=== PATIENT | male | born 1985 | race Caucasian/White ===

== ENCOUNTER 2020-04-22 15:07 | Emergency (ER) | payer MEDICAID ==
--- NOTE | 2020-04-22 15:35 | ER Document Report ---
ED Medical Screen (RME) - General Chief Complaint: Chest Pain Stated Complaint: CHEST PAIN/UPPER SHOULDER PAIN Time Seen by Provider: 04/22/20 15:24 Notes: HPI: 34-year-old male otherwise healthy presenting with 3 to 4 months of shortness of breath and feeling like he cannot take a deep breath in. States over the last 2 to 3 weeks he has had an increase in left chest discomfort with deep breathing where when he takes a deep breath in he feels a sharp pain radiating from the front left chest into the left back. Denies recent travel or prolonged immobilization patient does not believe it is Covid related he has not had a fever. PHYSICAL EXAMINATION: Lungs are clear to auscultation. Regular rate and rhythm. Discussed with Dr. Krishnan regarding D Dimer I have greeted and performed a rapid initial assessment of this patient. A comprehensive ED assessment and evaluation of the patient, analysis of test results and completion of medical decision making process will be conducted by an additional ED providers. Please note that clinical decision making for this patient was made during the 2019 pandemic of novel coronavirus which caused a significant strain on the healthcare system including at this particular facility. Criteria for admission discharge and level of care decisions as well as treatment decisions have necessarily changed - Related Data Allergies/Adverse Reactions: No Known Allergies Allergy (Unverified 04/22/20 15:24) Home Medications: multivitamins Past Medical History - Social History Chew tobacco use (# tins/day): No Frequency of alcohol use: None Drug Abuse: None Physical Exam - Vital signs Vitals: Temp Pulse Resp BP Pulse Ox 98.5 F 78 20 131/84 H 100 04/22/20 15:25 04/22/20 15:25 04/22/20 15:25 04/22/20 15:25 04/22/20 15:25 Course - Vital Signs Vital signs: Temp Pulse Resp BP Pulse Ox 98.5 F 78 20 131/84 H 100 04/22/20 15:25 04/22/20 15:25 04/22/20 15:25 04/22/20 15:25 04/22/20 15:25
--- NOTE | 2020-04-22 16:11 | RADIOLOGY REPORT (SQ) ---
EXAM DESCRIPTION: CHEST 2 VIEWS IMAGES COMPLETED DATE/TIME: 04/22/2020 3:43 pm REASON FOR STUDY: pleuritic pain COMPARISON: None. EXAM PARAMETERS: NUMBER OF VIEWS: two views TECHNIQUE: Digital Frontal and Lateral radiographic views of the chest acquired. RADIATION DOSE: NA LIMITATIONS: none FINDINGS: LUNGS AND PLEURA: No opacities, masses or pneumothorax. No pleural effusion. MEDIASTINUM AND HILAR STRUCTURES: No masses or contour abnormalities. HEART AND VASCULAR STRUCTURES: Heart normal size. No evidence for failure. BONES: No acute findings. HARDWARE: None in the chest. OTHER: No other significant finding. IMPRESSION: NO ACUTE RADIOGRAPHIC FINDING IN THE CHEST. TECHNICAL DOCUMENTATION: JOB ID: [id number] [employer]- All Rights Reserved Reading location - IP/workstation name: [email or web address]
[2020-04-22 16:38] LABS: ABSOLUTE BASOPHILS # (AUTO) 0.1 10^3/uL (0.0-0.2); ABSOLUTE EOSINOPHILS # (AUTO) 0.3 10^3/uL (0.0-0.6); ABSOLUTE LYMPHOCYTES (AUTO) 2.3 10^3/uL (0.5-4.7); ABSOLUTE MONOCYTES (AUTO) 0.6 10^3/uL (0.1-1.4); ABSOLUTE NEUT (AUTO) 4.3 10^3/uL (1.7-8.2); EOSINOPHILS % (AUTO) 3.9 % (0-6); HEMATOCRIT 43.8 % (37.9-51.0); HEMOGLOBIN 15.3 g/dL (13.5-17.0); MEAN CORPUSCULAR HEMOGLOBIN 31.7 pg (27.0-33.4); MEAN CORPUSCULAR HGB CONC 34.9 g/dL (32.0-36.0); MEAN CORPUSCULAR VOLUME 91 fl (80-97); MONOCYTES % (AUTO) 8.2 % (3-13); PLATELET COUNT 245 10^3/uL (150-450); RED BLOOD COUNT 4.83 10^6/uL (4.35-5.55); RED CELL DISTRIBUTION WIDTH 12.3 % (11.5-14.0); SEGMENTED NEUTROPHILS % (AUTO) 56.9 % (42-78); TOTAL CELLS COUNTED % (AUTO) 100 %; WHITE BLOOD COUNT 7.5 10^3/uL (4.0-10.5)
[2020-04-22 16:45] LABS: INTERNATIONAL RATION (INR) 1.08; PROTHROMBIN TIME 14.2 SEC (11.4-15.4)
[2020-04-22 17:00] LABS: ALBUMIN 4.6 g/dL (3.5-5.0); ALKALINE PHOSPHATASE 85 U/L (38-126); ANION GAP 9 (5-19); ASPARTATE AMINO TRANSFERASE 36 U/L (17-59); BILIRUBIN,DIRECT 0.2 mg/dL (0.0-0.4); BILIRUBIN,TOTAL 0.5 mg/dL (0.2-1.3); BLOOD UREA NITROGEN 14 mg/dL (7-20); CALCIUM 10.3 mg/dL (8.4-10.2); CARBON DIOXIDE 28 mmol/L (22-30); CHLORIDE 101 mmol/L (98-107); GLUCOSE 99 mg/dL (75-110); POTASSIUM 4.2 mmol/L (3.6-5.0)
[2020-04-22 17:08] LABS: D-DIMER < 0.27 ug/mL (0.00-0.50)
--- NOTE | 2020-04-22 18:40 | ER Document Report ---
ED General - General Chief Complaint: Chest Pain Stated Complaint: CHEST PAIN/UPPER SHOULDER PAIN Time Seen by Provider: 04/22/20 15:24 Primary Care Provider: [facility] [Provider Group] - Follow up as needed TIMMY DREW DO [NO LOCAL MD] - Follow up as needed - [facility] Notes: 34-year-old male presents with intermittent episodes of shortness of breath ongoing for the past 4 months. Patient states that earlier this year he fell from 30 feet and had a left calcaneal fracture. He underwent surgery and is now back up and walking unassisted. He states that he was essentially immobile for 6 months. During this time he states he pretty much just ate and played video games all day. He ended up gaining a lot of weight. He has started now to increase his activity, though notes that he is hesitant to still do a lot of workouts that involve the lower body. He states he is lost about 20 pounds and has changed his diet. Patient states that he will have intermittent episodes where he feels like his breath is taken away, like he cannot take a deep breath, like he is only taking 60% of a normal breath. This happens for 1 breath and then returns to normal. He states that this causes him to feel anxious and stressed. He states that he will intermittently have a sharp upper chest pain with the brief episodes of shortness of breath. He currently denies pain right now. He also states he is having upper back pain which she attributes to holding his son. He states he has had 2 negative Covid tests. He states that he is otherwise healthy, he has no diagnosed medical conditions, he does not smoke or drink. He also states that potentially all of his symptoms have been worsened by the fact that he has been essentially unemployed for 2 years. 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 - Related Data Allergies/Adverse Reactions: No Known Allergies Allergy (Unverified 04/22/20 15:24) Home Medications: multivitamins Past Medical History - General Information source: Patient - Social History Smoking Status: Former Smoker Chew tobacco use (# tins/day): No Frequency of alcohol use: None Drug Abuse: None Family History: Reviewed & Not Pertinent Patient has homicidal ideation: No Past Surgical History: Reports: Hx Orthopedic Surgery - left foot Review of Systems - Review of Systems Constitutional: denies: Fever EENT: No symptoms reported Cardiovascular: denies: Chest pain Respiratory: See HPI Gastrointestinal: denies: Abdominal pain Genitourinary: No symptoms reported Male Genitourinary: No symptoms reported Musculoskeletal: No symptoms reported Skin: No symptoms reported Hematologic/Lymphatic: No symptoms reported Neurological/Psychological: Depression. denies: Suicidal ideation Physical Exam - Vital signs Vitals: Temp Pulse Resp BP Pulse Ox 98.5 F 78 20 131/84 H 100 04/22/20 15:25 04/22/20 15:25 04/22/20 15:25 04/22/20 15:25 04/22/20 15:25 - General General appearance: Appears well, Alert In distress: None - HEENT Head: Normocephalic, Atraumatic Extraocular movements intact: Yes Pupils: PERRL Neck: Supple - Respiratory Respiratory status: No: Labored, Tachypnea Chest status: Nontender Breath sounds: Normal - Cardiovascular Rhythm: Regular Heart sounds: Normal auscultation Murmur: No - Abdominal Tenderness: Nontender - Extremities General upper extremity: Normal ROM General lower extremity: Normal ROM. No: Edema - Neurological Neuro grossly intact: Yes Cognition: Normal Orientation: AAOx4 - Psychological Associated symptoms: Normal affect - Skin Skin Temperature: Warm Course - Re-evaluation Re-evalutation: 34-year-old male with intermittent episodes of shortness of breath, more so breathless numbness, ongoing for the past 4 months. Patient relates that he had a prolonged hospitalization after a calcaneal fracture and a prolonged period of immobility, he is now ambulatory and trying to get back into activity. On exam he is hemodynamically stable, lungs are clear, heart RRR, no peripheral edema. Labs done through the triage process, reviewed. No leukocytosis or left shift. No acute anemia. Electrolytes within normal limits, creatinine within normal limits. Troponin and D-dimer negative. EKG is nonischemic. Chest x-ray is without consolidation. All these results were discussed with patient. At this time I do not believe that an acute cardiopulmonary process is taking place. He did not report any chest trauma which would put him at risk for pulmonary disease. Reportedly has had 2 neg Covid test therefore less likely sequela of a Covid infection. I discussed with him that likely is a combination of physical deconditioning and effects of having an injury that was essentially life- changing for many months. I discussed with him need to establish with a primary care doctor and potentially may be even seeing a counselor in the future given his report of feeling stressed out. I also encouraged him to try to increase his activity level, do a little bit more each day. Return precautions given, stable at time of discharge. - Vital Signs Vital signs: Temp Pulse Resp BP Pulse Ox 98.5 F 78 20 131/84 H 100 04/22/20 15:25 04/22/20 15:25 04/22/20 15:25 04/22/20 15:25 04/22/20 15:25 - Laboratory Results Result Diagrams: 04/22/20 16:10 04/22/20 16:10 Laboratory Results Interpreted: 04/22/20 16:10 Calcium 10.3 H Critical Laboratory Results Reviewed: No Critical Results - Radiology Results Critical Radiology Results Reviewed: No Critical Results - EKG Interpretation by Me Additional EKG results interpreted by me: EKG is interpreted by me. Normal sinus rhythm, rate 79. Narrow QRS, QTC within normal limits. No ST segment elevation or depression. Discharge - Discharge Clinical Impression: Breathlessness Disposition: HOME, SELF-CARE Additional Instructions: Please establish with a primary care doctor. You have been provided resources for [facility], [facility] and along with Dr. Drew who is the doc of the day. Okay to get back into being active, try to push yourself a little bit more every day. Return to the emergency department for any concerning or worsening symptoms. Referrals: TIMMY DREW DO [NO LOCAL MD] - Follow up as needed [facility] [Provider Group] - Follow up as needed
[2020-04-22 19:28] VITALS: BP 130/86
--- NOTE | 2020-04-23 02:03 | EKG REPORT ---
SEVERITY:- NORMAL ECG - SINUS RHYTHM : Confirmed by: Rody Garcia MD 23-Apr-2020 02:02:21
== END 2020-04-22 19:29 | disposition home or self-care (01) ==
LOC: ER 15:07
DX: R06.81 Apnea, not elsewhere classified (principal); R06.02 Shortness of breath; R07.81 Pleurodynia; F32.9 Major depressive disorder, single episode, unspecified; Z56.0 Unemployment, unspecified; Z87.81 Personal history of (healed) traumatic fracture; Z87.891 Personal history of nicotine dependence
CPT/HCPCS: 36415; 71046; 80053; 84484; 85025; 85379; 85610; 93005; 93010; 99285